=== PATIENT | male | born 1960 | race Caucasian/White ===

== ENCOUNTER 2021-09-30 11:54 | Emergency (ER) | payer BC ==
[2021-09-30 12:22] VITALS: BP 134/80; PULSE 91; TEMP 98; BMI 28.7
== END 2021-09-30 14:37 | disposition home or self-care (01) ==
LOC: JER 11:54
DX: U07.1 COVID-19 (principal); J12.82 Pneumonia due to coronavirus disease 2019; R05.1 Acute cough
CPT/HCPCS: 71046-TC-FY; 99283-25